=== PATIENT | male | born 1960 | race American Indian/Alaskan Native ===

== ENCOUNTER 2018-09-15 08:25 | Outpatient (CLI) | payer BC ==
[2018-09-15 09:13] LABS: Blood Urea Nitrogen 8 mg/dL (9-20)
--- NOTE | 2018-09-15 18:18 | Cat Scan Report ---
PROCEDURE: CT ANGIO CHEST and CT angiogram abdomen and pelvis TECHNIQUE: Noncontrast axial helical imaging was performed through the chest, abdomen and pelvis. Sub sequently Computerized tomographic angiography of the chest was performed after the IV injection of i odinated nonionic contrast including image processing. The image data was postprocessed using 2-dime nsional multiplanar reformatted (MPR) and 3-dimensional (MIP and/or volume rendered) techniques. Auto mated exposure control, adjustment of mA and/or kV according to patient size, or iterative reconstruc tion dose optimization techniques were utilized. CT DOSE LENGTH PRODUCT: 3040.8 mGycm HISTORY: PULMONARY HYPERTENSION, WITH AND WITHOUT CONTRAST patient has history of deep venous thrombo sis lower extremities, thrombophlebitis, hypercoagulability. COMPARISONS: None . FINDINGS: CT ANGIOGRAM CHEST: There is no evidence of infiltrate, pneumothorax or pleural fluid collection. The trachea and bronchi are patent. There is mild rightward displacement of the trachea secondary to enlargement of the left lobe of the thyroid which is heterogeneous in appearance. The heart is enlarged. There is aneurysmal dilatation of the ascending thoracic aorta (4.7 cm) at the level of the right pul monary artery. The thoracic aorta is otherwise normal caliber. There is no evidence of dissection. There is no evidence of intrathoracic adenopathy. The bony structures are notable for spondylitic change of the thoracic spine with multiple level dege nerative facet change. CT ANGIOGRAM ABDOMEN AND PELVIS: There is evidence of fatty infiltration of the liver. The spleen, pancreas, kidneys and adrenal glands are unremarkable. The gallbladder is moderately distended and unremarkable. The bowel is normal caliber. The appendix is normal caliber. There is no evidence of pneumoperitoneum or free fluid. The abdominal aorta is normal caliber and without evidence of dissection. There is normal enhancement of the major intra-abdominal branches of the aorta without evidence of oc clusion or significant stenosis. There is normal enhancement of the iliac arteries without evidence o f occlusion, significant stenosis or dissection. There is atherosclerotic vascular calcification of the aorta and iliac arteries. There is no evidence of intra-abdominal adenopathy. An infrarenal IVC filter is present. The urinary bladder is mildly distended and unremarkable. The prostate gland is enlarged with maximal axial dimension of 5.3 cm. There is a small left inguinal hernia that contains fat. The bony structures are unremarkable. IMPRESSION: CT ANGIOGRAM CHEST: 1. Aneurysmal dilatation of ascending thoracic aorta (4.7 cm) at the level of the right pulmonary art ellis. Comparison with previous imaging studies and continued surveillance is recommended. No evidence of aortic dissection. 2. Enlarged left lobe of the thyroid with mild displacement of the trachea to the right. 3. Cardiomegaly. CT ANGIOGRAM ABDOMEN AND PELVIS: 1. No evidence of aneurysm or dissection of the abdominal aorta. 2. IVC filter. 3. Fatty infiltration of the liver. 4. Enlarged prostate gland. 5. Left inguinal hernia that contains fat. This document is electronically signed by Minerva Acevedo MD., September 15 2018 06:16:11 PM ET
== END 2018-09-15 08:26 | disposition home or self-care (01) ==
LOC: CT 08:25
PROVIDERS: ATTEND Surgery Vascular Surgery
DX: K40.90 Unilateral inguinal hernia, without obstruction or gangrene, not specified as recurrent (principal); K76.0 Fatty (change of) liver, not elsewhere classified; E04.9 Nontoxic goiter, unspecified; I51.7 Cardiomegaly; I87.323 Chronic venous hypertension (idiopathic) with inflammation of bilateral lower extremity; I80.292 Phlebitis and thrombophlebitis of other deep vessels of left lower extremity; I27.20 Pulmonary hypertension, unspecified; D68.59 Other primary thrombophilia; Z95.828 Presence of other vascular implants and grafts
CPT/HCPCS: 36415; 71275; 74174; 82565; 84520; Q9967